=== PATIENT | male | born 1975 | race Hispanic/Latino ===

== ENCOUNTER 2021-05-11 18:02 | Emergency (ER) | payer BC ==
[2021-05-11] MEDS ORDERED: Fluorescein Opthalmic Strip ONE (18:36)
[2021-05-11] MEDS ORDERED: Proparacaine 0.5% Opth 15 ML BOT ONE (18:36)
== END 2021-05-11 21:14 | disposition home or self-care (01) ==
LOC: ERS 18:02
DX: T15.92XA Foreign body on external eye, part unspecified, left eye, initial encounter (principal); F17.210 Nicotine dependence, cigarettes, uncomplicated
CPT/HCPCS: 65222; 70480